=== PATIENT | female | born 1955 | race Caucasian/White ===

== ENCOUNTER 2017-07-04 06:36 | Emergency (ER) | payer BC, OTHER ==
[~2017-07-04] VITALS: Ht 170.2 cm; Wt 70.0 kg
[~2017-07-04 06:36] MED LIST: ASPI81CH3; ATOR40TA PO; LORTA5 PO; METHO500 PO; NAPR250T57 PO; NAPR500 PO; PERC5TAB12 PO; XANA0.5T PO
[2017-07-04 06:38] VITALS: BP 128/81; PULSE 91; RESP 20; TEMP 97.9; O2SAT 92
[2017-07-04] MEDS ORDERED: RESP: ALBUTEROL 2.5 MG/IPRATROPIUM 0.5 MG NEB (SCH) INH (07:15)
[2017-07-04] MEDS ORDERED: methylPREDNISolone SOD SUCC 125 MG/2 ML VIAL IV PUSH ONE (07:15)
[2017-07-04] MEDS ORDERED: RESP: LIDOCAINE HCL 4% PF 5 ML NEB NEB ONE (07:15)
[2017-07-04] MEDS ORDERED: SODIUM CHLORIDE 0.9% FLUSH 10 ML FLUSH IVF PRN (07:15)
[2017-07-04] MEDS ORDERED: SODIUM CHLORID 0.9% 500 ML INJ 500 ML IV ONE (07:15)
--- NOTE | 2017-07-04 07:15 | PD ---
HPI Chief Complaint: Respiratory Symptoms Time Seen by Provider: 06:57 Travel History International Travel<30 days: No Contact w/Intl Traveler<30days: No Traveled to known affect area: No History of Present Illness HPI The patient is a 62-year-old female who presents to the emergency department with shortness of breath and cough that started on Saturday. The patient has a mostly dry nonproductive cough, shortness of breath is worse with lying supine, fever greater than 101 several days ago, and generalized malaise. The patient was seen in urgent care on Saturday diagnosed with pneumonia, however, she states she had no x-ray or blood work performed. She was advised to come to the emergency department or follow-up with her primary physician. The patient states she was placed on Levaquin, steroids, and albuterol inhaler. She notes difficulty sleeping at night secondary to inability to lie supine a persistent cough. She does have a history of tobacco use without any history of COPD, last cigarette was this morning. The patient has not followed up with her primary physician, Dr. Pancho Lieberman. The patient denies any history of congestive heart failure, pulmonary embolism, DVT, or lower extremity edema. Symptoms are moderate. 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) Tetanus Vaccination: Unknown Influenza Vaccination: No LMP: menapause : 4 Para: 3 Dilation and Curettage (D&C): Yes Past Surgical History Eye Surgery: Yes (b/l catracts) Oral Surgery: Yes Social History Alcohol Use: Yes (occasionally) Tobacco Use: Yes Substance Use: No Allergies-Medications (Allergen,Severity, Reaction): Coded Allergies: penicillin G (Unverified Allergy, Unknown, 07/04/17) Reported Meds & Prescriptions Reported Meds & Active Scripts Active Reported Alprazolam 0.5 Mg Tab 0.5 Mg PO Q8H PRN Atorvastatin (Atorvastatin Calcium) 40 Mg Tab 40 Mg PO HS Aspirin 81 Mg Chew 81 Mg CHEW DAILY Guaifen-Codeine 100-10 mg/5 ml (Codeine Phosphate/Guaifenesin) 10 Mg-100 Mg/5 Ml Liquid 5 Ml PO TID PRN Levaquin (Levofloxacin) 500 Mg Tablet 500 Mg PO DAILY Review of Systems Except as stated in HPI: all other systems reviewed are Neg General / Constitutional: Positive: Fever Cardiovascular: Positive: Dyspnea on exertion, No: Chest Pain or Discomfort Respiratory: Positive: Cough, Shortness of Breath, Orthopnea Gastrointestinal: No: Nausea, Vomiting, Abdominal Pain Musculoskeletal: No: Edema Physical Exam Narrative GENERAL: Awake, alert, 8-year-old female appears her stated age and is in no acute respiratory distress. SKIN: Focused skin assessment warm/dry. HEAD: Atraumatic. Normocephalic. EYES: No injection or drainage. ENT: No nasal bleeding or discharge. Mucous membranes pink and moist. NECK: Trachea midline. No JVD. CARDIOVASCULAR: Regular rate and rhythm. No murmur appreciated. Heart rate in the 90s. RESPIRATORY: No accessory muscle use. Scattered rhonchi and wheezes. GASTROINTESTINAL: Abdomen soft, non-tender, nondistended. MUSCULOSKELETAL: No obvious deformities. No clubbing. No cyanosis. No edema. NEUROLOGICAL: Awake and alert. No obvious cranial nerve deficits. Motor grossly within normal limits. Normal speech. PSYCHIATRIC: Appropriate mood and affect; insight and judgment normal. Data Data Last Documented VS Vital Signs Date Time Temp Pulse Resp B/P (MAP) Pulse Ox O2 Delivery O2 Flow Rate FiO2 07/04/17 07:47 67 17 130/80 (97) 91 Room Air 07/04/17 07:41 2.00 07/04/17 06:38 97.9 Orders Orders Complete Blood Count With Diff (07/04/17 07:09) Comprehensive Metabolic Panel (07/04/17 07:09) B-Type Natriuretic Peptide (07/04/17 07:09) Magnesium (Mg) (07/04/17 07:09) Ckmb (Isoenzyme) Profile (07/04/17 07:09) Troponin I (07/04/17 07:09) Influenzae A/B Antigen (07/04/17 07:09) Blood Culture (07/04/17 07:09) Iv Access Insert/Monitor (07/04/17 07:09) Electrocardiogram (07/04/17 07:09) Ecg Monitoring (07/04/17 07:09) Oximetry (07/04/17 07:09) Oxygen Administration (07/04/17 07:09) Chest, Single Ap (07/04/17 07:09) Sodium Chloride 0.9% Flush (Ns Flush) (07/04/17 07:15) Methylprednisolone So Succ Inj (Solumedr (07/04/17 07:15) Albuterol-Ipratropium Neb (Duoneb Neb) (07/04/17 07:15) Lidocaine Pf 4% Neb (Lidocaine Pf 4% Neb (07/04/17 07:15) Lactic Acid (07/04/17 07:09) Sodium Chlorid 0.9% 500 Ml Inj (Ns 500 M (07/04/17 07:15) Ed Discharge Order (07/04/17 09:18) Labs Laboratory Tests Test 07/04/17 07:20 07/04/17 07:32 White Blood Count 9.0 TH/MM3 Red Blood Count 4.77 MIL/MM3 Hemoglobin 14.4 GM/DL Hematocrit 42.9 % Mean Corpuscular Volume 89.9 FL Mean Corpuscular Hemoglobin 30.2 PG Mean Corpuscular Hemoglobin Concent 33.6 % Red Cell Distribution Width 14.0 % Platelet Count 243 TH/MM3 Mean Platelet Volume 7.9 FL Neutrophils (%) (Auto) 57.2 % Lymphocytes (%) (Auto) 33.5 % Monocytes (%) (Auto) 8.3 % Eosinophils (%) (Auto) 0.5 % Basophils (%) (Auto) 0.5 % Neutrophils # (Auto) 5.2 TH/MM3 Lymphocytes # (Auto) 3.0 TH/MM3 Monocytes # (Auto) 0.8 TH/MM3 Eosinophils # (Auto) 0.0 TH/MM3 Basophils # (Auto) 0.0 TH/MM3 CBC Comment DIFF FINAL Differential Comment Blood Urea Nitrogen 15 MG/DL Creatinine 0.97 MG/DL Random Glucose 86 MG/DL Total Protein 7.6 GM/DL Albumin 3.6 GM/DL Calcium Level 9.4 MG/DL Magnesium Level 2.3 MG/DL Alkaline Phosphatase 111 U/L Aspartate Amino Transf (AST/SGOT) 19 U/L Alanine Aminotransferase (ALT/SGPT) 33 U/L Total Bilirubin 0.6 MG/DL Sodium Level 139 MEQ/L Potassium Level 3.7 MEQ/L Chloride Level 107 MEQ/L Carbon Dioxide Level 23.3 MEQ/L Anion Gap 9 MEQ/L Estimat Glomerular Filtration Rate 59 ML/MIN Total Creatine Kinase 35 U/L Troponin I LESS THAN 0.02 NG/ML B-Type Natriuretic Peptide 25 PG/ML Lactic Acid Level 1.7 mmol/L MDM Medical Decision Making Medical Screen Exam Complete: Yes Emergency Medical Condition: Yes Medical Record Reviewed: Yes Interpretation(s) Chest x-ray reveals no acute cardiopulmonary abnormality is identified. EKG reveals normal sinus rhythm with a rate of 68. RSR prime in V1 consistent with incomplete right bundle branch block. Inverted T-wave in lead III. Q- wave noted in lead III. Last Impressions Chest X-Ray 07/04/17 0709 Signed Impressions: Service Date/Time: , July 04, 2017 07:37 - CONCLUSION: No acute cardiopulmonary abnormality is identified. Luca Gu MD Laboratory Tests Test 07/04/17 07:20 07/04/17 07:32 White Blood Count 9.0 TH/MM3 Red Blood Count 4.77 MIL/MM3 Hemoglobin 14.4 GM/DL Hematocrit 42.9 % Mean Corpuscular Volume 89.9 FL Mean Corpuscular Hemoglobin 30.2 PG Mean Corpuscular Hemoglobin Concent 33.6 % Red Cell Distribution Width 14.0 % Platelet Count 243 TH/MM3 Mean Platelet Volume 7.9 FL Neutrophils (%) (Auto) 57.2 % Lymphocytes (%) (Auto) 33.5 % Monocytes (%) (Auto) 8.3 % Eosinophils (%) (Auto) 0.5 % Basophils (%) (Auto) 0.5 % Neutrophils # (Auto) 5.2 TH/MM3 Lymphocytes # (Auto) 3.0 TH/MM3 Monocytes # (Auto) 0.8 TH/MM3 Eosinophils # (Auto) 0.0 TH/MM3 Basophils # (Auto) 0.0 TH/MM3 CBC Comment DIFF FINAL Differential Comment Blood Urea Nitrogen 15 MG/DL Creatinine 0.97 MG/DL Random Glucose 86 MG/DL Total Protein 7.6 GM/DL Albumin 3.6 GM/DL Calcium Level 9.4 MG/DL Magnesium Level 2.3 MG/DL Alkaline Phosphatase 111 U/L Aspartate Amino Transf (AST/SGOT) 19 U/L Alanine Aminotransferase (ALT/SGPT) 33 U/L Total Bilirubin 0.6 MG/DL Sodium Level 139 MEQ/L Potassium Level 3.7 MEQ/L Chloride Level 107 MEQ/L Carbon Dioxide Level 23.3 MEQ/L Anion Gap 9 MEQ/L Estimat Glomerular Filtration Rate 59 ML/MIN Total Creatine Kinase 35 U/L Troponin I LESS THAN 0.02 NG/ML B-Type Natriuretic Peptide 25 PG/ML Lactic Acid Level 1.7 mmol/L Differential Diagnosis Differential diagnosis includes bronchitis, pneumonia, pleural effusion, pulmonary edema, congestive heart failure, COPD exacerbation, influenza, viral syndrome. Narrative Course IV was established, labs are drawn and sent, and the patient was placed on cardiac telemetry monitoring and continuous pulse oximetry monitoring. EKG was ordered and interpreted. Chest x-ray was obtained. Lactic acid and blood cultures were sent to lab. The patient was administered Solu-Medrol, duo nebs, and IV fluids. Chest x-ray is unremarkable. Influenza screen is normal. White count is normal. BNP was 25. Lactic acid is normal. Troponin is less than 0.02. It appears the patient has bronchitis, may have underlying COPD with history of tobacco use. The patient is Mychal on Levaquin and steroids as well as an albuterol inhaler. Patient may benefit from follow-up with her primary physician and/or referral patient to pulmonology. The patient was reassessed after nebulizers were administered. The patient's symptoms have improved. The patient Mychal has cough syrup, Levaquin and albuterol inhaler. I will add prednisone. She will be provided a copy of her x-ray results and lab results at discharge. She is advised to follow-up with her primary physician and return if symptoms worsen or progress. Diagnosis Primary Impression: Bronchitis Additional Impression: Dyspnea Qualified Codes: R06.00 - Dyspnea, unspecified Patient Instructions: General Instructions Additional Instructions: Please provide the patient a copy of her labs and x-ray results at discharge. Follow-up with your primary physician. Stop smoking. Return if symptoms worsen or progress. Continue previous medications as directed. Med/Other Pt SpecificInfo: Prescription(s) given Scripts Prednisone (Prednisone) 20 Mg Tab 40 MG PO DAILY for 5 Days, #10 TAB 0 Refills Take 40 mg (2 tablets) daily for 5 days Prov: Shan Merchant MD 07/04/17 Disposition: 01 DISCHARGE HOME Condition: Stable Shan Merchant MD Jul 04, 2017 07:15
[2017-07-04 07:45] LABS: AUTOMATED NEUTROPHIL # 5.2 TH/MM3 (1.8-7.7); BASOPHIL % 0.5 % (0.0-2.0); EOSINOPHIL % 0.5 % (0.0-4.0); HEMATOCRIT 42.9 % (35.0-46.0); HEMOGLOBIN 14.4 GM/DL (11.6-15.3); LYMPH % 33.5 % (9.0-44.0); MEAN CELL VOLUME 89.9 FL (80.0-100.0); MEAN CORPUSCULAR HEMOGLOBIN 30.2 PG (27.0-34.0); MEAN CORPUSCULAR HGB CONC 33.6 % (32.0-36.0); MEAN PLATELET VOLUME 7.9 FL (7.0-11.0); MONO % 8.3 % (0.0-8.0); MONOCYTE # 0.8 TH/MM3 (0-0.9); NEUT % 57.2 % (16.0-70.0); PLATELET COUNT 243 TH/MM3 (150-450); RED BLOOD COUNT 4.77 MIL/MM3 (4.00-5.30)
[2017-07-04 07:47] VITALS: BP 130/80; PULSE 67; RESP 17; O2SAT 91
[2017-07-04] MEDS ORDERED: ASPI-516 CHEW (07:52)
[2017-07-04] MEDS ORDERED: ATOR40TA16 PO (07:52)
[2017-07-04] MEDS ORDERED: LEVA500T33 PO (07:52)
[2017-07-04] MEDS ORDERED: GUAI100S5 PO (07:52)
[2017-07-04] MEDS ORDERED: ALPR0.5T3 PO (07:52)
--- NOTE | 2017-07-04 07:55 | RADRPT ---
EXAM DATE/TIME: 07/04/2017 07:37 [facility] COMPARISON: No previous studies available for comparison. INDICATIONS : Chest pain. Cough. Congestion. Unable to expectorate. MEDICAL HISTORY : Spinal stenosis. SURGICAL HISTORY : None. ENCOUNTER: Initial ACUITY: 4 - 6 days PAIN SCORE: 5/10 LOCATION: middle chest FINDINGS: Portable AP view of the chest demonstrates a normal-sized cardiac silhouette. No effusion, consolidat ion, or pneumothorax is visualized. The bones and soft tissues demonstrate no acute abnormality. Ther e is calcification of the aorta. CONCLUSION: No acute cardiopulmonary abnormality is identified. Luca Gu MD on July 04, 2017 at 7:51 Board Certified Radiologist. This report was verified electronically.
[2017-07-04 08:09] LABS: ALBUMIN 3.6 GM/DL (3.4-5.0); AST (GOT) 19 U/L (15-37); BICARBONATE 23.3 MEQ/L (21.0-32.0); BLOOD UREA NITROGEN 15 MG/DL (7-18); CALCIUM 9.4 MG/DL (8.5-10.1); CHLORIDE 107 MEQ/L (98-107); CREATININE 0.97 MG/DL (0.50-1.00); GLOMERULAR FILTRATION RATE 59 ML/MIN (>89); GLUCOSE,RANDOM 86 MG/DL (74-106); MAGNESIUM 2.3 MG/DL (1.5-2.5); SODIUM (NA) 139 MEQ/L (136-145)
[2017-07-04 08:10] LABS: ALT (GPT) 33 U/L (10-53)
[2017-07-04 08:13] LABS: ALKALINE PHOSPHATASE 111 U/L (45-117); TOTAL BILIRUBIN ADULT 0.6 MG/DL (0.2-1.0); TOTAL PROTEIN 7.6 GM/DL (6.4-8.2); TROPONIN I LESS THAN 0.02 NG/ML (0.02-0.05)
[2017-07-04 08:30] VITALS: BP 119/64; PULSE 76; RESP 18; O2SAT 96
[2017-07-04] MEDS ORDERED: PRED20 PO (09:20)
[2017-07-04 09:30] VITALS: BP 120/63; PULSE 75; O2SAT 95
--- NOTE | 2017-07-04 18:54 | EKG ---
Date Performed: 07/04/2017 Time Performed: 07:18:38 PTAGE: 62 years EKG: Sinus rhythm INCOMPLETE RIGHT BUNDLE BRANCH BLOCK BORDERLINE ECG Since the PREVIOUS TRACING , no significant change noted PREVIOUS TRACIN12/04/2013 04.34 DOCTOR: Josafat Gutierrez Interpretating Date/Time 07/04/2017 18:49:41
== END 2017-07-04 09:37 | disposition home or self-care (01) ==
LOC: NEPE 06:36
DX: J40 Bronchitis, not specified as acute or chronic (principal); E78.00 Pure hypercholesterolemia, unspecified; F17.210 Nicotine dependence, cigarettes, uncomplicated; Z79.899 Other long term (current) drug therapy
CPT/HCPCS: 71045; 80053; 82550; 83605; 83735; 83880; 84484; 85025; 87040; 87804; 93005; 94640; 94664; 96361; 96374; 99285; J2930; J7040